=== PATIENT | male | born 1995 | race Caucasian/White ===

== ENCOUNTER 2016-09-05 22:32 | Emergency (ER) | payer OTHER ==
[~2016-09-05] VITALS: Ht 165.1 cm; Wt 72.6 kg
[2016-09-05 22:36] VITALS: BP 126/64
== END 2016-09-06 06:17 | disposition left against medical advice (07) ==
LOC: ER 22:32
DX: Z53.21 Procedure and treatment not carried out due to patient leaving prior to being seen by health care provider (principal)

== ENCOUNTER 2020-12-27 00:11 | Emergency (ER) | payer MEDICAID, OTHER ==
[~2020-12-27] VITALS: Ht 167.6 cm; Wt 66.0 kg
[2020-12-27] MEDS ORDERED: ONDANSETRON HCL 4MG/2ML INJ IV STA (03:07)
[2020-12-27] MEDS ORDERED: POLYETHYLENE GLYCOL 3350 (17GM) 1 DOSE PACK PO ONE (03:15)
[2020-12-27] MEDS ORDERED: MINERAL OIL ENEMA 133ML PR ONE (03:15)
[2020-12-27] MEDS ORDERED: SODIUM CHLORIDE 0.9% 1,000 ML IV ONE (03:15)
[2020-12-27] MEDS ORDERED: MINERAL OIL 30ML BOTTLE PO ONE (03:15)
[2020-12-27 03:29] LABS: BASOPHILS % 0.3 % (0.0-2.0); EOSINOPHILS % 0.5 % (0.0-5.0); HEMATOCRIT. 44.8 % (42.0-52.0); HEMOGLOBIN. 15.3 g/dL (14.0-18.0); LYMPHOCYTES % 16.7 % (20.0-50.0); MEAN CORPUSCULAR HEMOGLOBIN 30.6 pg (28.0-32.0); MEAN CORPUSCULAR VOLUME 89.5 fL (80.0-94.0); MEAN PLATELET VOLUME 8.7 fl (7.4-10.4); MONOCYTES % 5.3 % (2.0-8.0); NEUTROPHILS % 77.2 % (40.0-76.0); PLATELET 250 x1000/uL (130-400); RED BLOOD CELL COUNT 5.01 mill/uL (4.7-6.1); RED CELL DISTRIBUTION WIDTH 12.7 % (11.6-14.6)
[2020-12-27 03:36] LABS: CHLORIDE 107 mEq/L (98-107)
[2020-12-27 03:40] LABS: PROTHROMBIN TIME 10.4 sec (9.6-11.0)
[2020-12-27 04:16] LABS: CLARITY URINE CLEAR (CLEAR); COLOR URINE YELLOW (YELLOW); KETONES URINE 1+ (NEGATIVE); LEUKOCYTE ESTERASE URINE NEGATIVE (NEGATIVE); NITRITE URINE NEGATIVE (NEGATIVE); OCCULT BLOOD URINE NEGATIVE (NEGATIVE); PH URINE 6.5 (4.5-8.0); PROTEIN URINE NEGATIVE (NEGATIVE)
[2020-12-27] MEDS ORDERED: CIPR500T5 MT (05:11)
[2020-12-27 05:29] VITALS: BP 143/89
== END 2020-12-27 05:29 | disposition home or self-care (01) ==
LOC: ER 00:11
DX: N32.89 Other specified disorders of bladder (principal); N39.0 Urinary tract infection, site not specified; F12.10 Cannabis abuse, uncomplicated
CPT/HCPCS: 36415; 74176; 80053; 81003; 83690; 85025; 85610; 96361; 96374; 99284; J2405; J7030; Z7610

== ENCOUNTER 2022-05-12 21:54 | Emergency (ER) | payer MEDICAID ==
[~2022-05-12] VITALS: Ht 167.6 cm; Wt 82.2 kg
[~2022-05-12 21:54] MED LIST: CIPR500T5 MT
[2022-05-12 22:10] VITALS: BP 123/91
[2022-05-12] MEDS ORDERED: MAGNESIUM/ALUMINUM HYDROXIDE/SIMETHICONE 30ML UDC PO STA (23:57)
== END 2022-05-13 | disposition home or self-care (01) ==
LOC: ER 21:54
DX: R10.13 Epigastric pain (principal); K21.9 Gastro-esophageal reflux disease without esophagitis; F12.10 Cannabis abuse, uncomplicated
CPT/HCPCS: 99283

== ENCOUNTER 2023-09-13 09:09 | Emergency (ER) | payer SELFPAY ==
[~2023-09-13] VITALS: Ht 167.6 cm; Wt 77.0 kg
[2023-09-13 09:21] VITALS: O2SAT 99
[2023-09-13] MEDS ORDERED: MUPI1OIN4 TP (10:38)
[2023-09-13] MEDS ORDERED: IBUP-2029 MT (10:38)
[2023-09-13] MEDS ORDERED: SULF1TAB48 MT (10:38)
[2023-09-13 11:04] VITALS: BP 150/79; PULSE 74; RESP 18; TEMP 97.8
== END 2023-09-13 11:07 | disposition home or self-care (01) ==
LOC: ER 09:09
DX: L02.416 Cutaneous abscess of left lower limb (principal); K21.9 Gastro-esophageal reflux disease without esophagitis; F12.90 Cannabis use, unspecified, uncomplicated
CPT/HCPCS: 99283